=== PATIENT | male | born 1985 | race Two or more races ===

== ENCOUNTER 2018-05-18 16:02 | Emergency (ER) | payer SELFPAY ==
[2018-05-18] MEDS: IV NORMAL SALINE 1000ML BAG 1,000 ML IV ×4 (16:23→17:49)
[2018-05-18 16:25] LABS: ADD MAN DIFF? NO
[2018-05-18] MEDS: MORPHINE SULFATE 4 MG/ML DISP.SYRIN. IV (16:25)
[2018-05-18] MEDS: ONDANSETRON PF 4 MG/2 ML VIAL. IV (16:25)
[2018-05-18 16:29] LABS: BASO # 0.1 x10^3/uL (0.0-0.2); BASO % 1 % (0-3); EOS % 0 % (0-3); HEMATOCRIT 51.1 % (39.0-53.0); HEMOGLOBIN 17.8 g/dL (13.0-17.5); LYMPH # 2.6 x10^3/uL (1.0-4.8); LYMPH % 20 % (24-48); MEAN CORPUSCULAR HEMOGLOBIN 30 pg (25-35); MEAN CORPUSCULAR HGB CONC 35 g/dL (31-37); MEAN CORPUSCULAR VOLUME 87 fL (79-100); MONO # 1.3 x10^3/uL (0.0-1.1); MONO % 10 % (0-9); NEUT # 9.3 x10^3uL (1.8-7.7); NEUT % 70 % (31-73); PLATELET COUNT 411 x10^3/uL (140-400); RED CELL DISTRIBUTION WIDTH 13.4 % (11.5-14.5); WHITE BLOOD COUNT 13.4 x10^3/uL (4.0-11.0)
[2018-05-18 16:42] LABS: ANION GAP 17 (6-14); BLOOD UREA NITROGEN 26 mg/dL (8-26); BUN/CREATININE RATIO 10 (6-20); CALCIUM 11.1 mg/dL (8.5-10.1); CARBON DIOXIDE 25 mmol/L (21-32); CHLORIDE 95 mmol/L (98-107); CREATININE 2.7 mg/dL (0.7-1.3); GFR 27.2; GLUCOSE 105 mg/dL (70-99); POTASSIUM 3.7 mmol/L (3.5-5.1); SODIUM 137 mmol/L (136-145)
[2018-05-18 16:48] LABS: ALBUMIN 5.9 g/dL (3.4-5.0); ALBUMIN/GLOBULIN RATIO 1.2 (1.0-1.7); ALK PHOS 104 U/L (46-116); ALT (SGPT) 65 U/L (16-63); AST (SGOT) 28 U/L (15-37); CREATINE KINASE 165 U/L (39-308); MAGNESIUM 2.3 mg/dL (1.8-2.4); TOTAL BILIRUBIN 0.7 mg/dL (0.2-1.0); TOTAL PROTEIN 10.7 g/dL (6.4-8.2)
[2018-05-18 18:37] LABS: BILIRUBIN,URINE NEGATIVE (NEG); CLARITY,URINE CLEAR; COLOR,URINE YELLOW; GLUCOSE,URINE NEGATIVE (NEG); NITRITE,URINE NEGATIVE (NEG); PROTEIN,URINE 30 mg/dL (NEG-TRACE); UROBILINOGEN,URINE 0.2 mg/dL (0.2 mg/dL)
[2018-05-18 18:45] LABS: BACTERIA,URINE 0 /HPF (0-FEW); RBC,URINE 0 /HPF (0-2); SQUAMOUS EPITHELIAL CELL,UR OCC /LPF
[2018-05-18 18:46] LABS: AMORPHOUS SEDIMENT,UR PRESENT /HPF; GRANULAR CASTS,URINE FEW /HPF; HYALINE CASTS, URINE MANY /HPF
== END 2018-05-18 18:30 | disposition home or self-care (01) ==
LOC: ER 16:02
DX: E86.0 Dehydration (principal); N17.9 Acute kidney failure, unspecified; T67.3XXA Heat exhaustion, anhydrotic, initial encounter; X32.XXXA Exposure to sunlight, initial encounter; Y93.89 Activity, other specified; Y99.8 Other external cause status; Y92.69 Other specified industrial and construction area as the place of occurrence of the external cause
CPT/HCPCS: 36415; 80053; 81001; 82550; 83735; 85025; 96361; 96374; 96375; 99284-25; J2270; J2405; J7030